=== PATIENT | male | born 1955 | race American Indian/Alaskan Native ===

== ENCOUNTER 2021-07-04 05:50 | Day surgery (SDC) | payer OTHER ==
[2021-06-28 11:11] LABS: Hematocrit 39.2 % (35.5-45.6); Hemoglobin 12.7 gm/dl (11.8-15.2); Mean Corpuscular HGB Conc 33 % (32-34); Mean Corpuscular Volume 90 fl (84-94); Platelet Count 219 K/mm3 (140-440); Red Blood Count 4.35 M/mm3 (3.65-5.03); Red Cell Distribution Width 13.6 % (13.2-15.2)
[2021-06-28 11:31] LABS: BUN/Creatinine Ratio 20; Blood Urea Nitrogen 16 mg/dL (9-20); Calcium 9.4 mg/dL (8.4-10.2); Hemolysis Index 5
[2021-07-04] MEDS ORDERED: LACTATED RINGERS 1,000 ML ONE ×2 (05:59→09:57)
[2021-07-04] MEDS ORDERED: ceFAZolin/STERILE WATER 2 GM/20 ML SYRINGE IV NR (07:00)
[2021-07-04] MEDS ORDERED: ONDANSETRON 4 MG/2 ML INJ ONE (07:08)
[2021-07-04] MEDS ORDERED: ROCURONIUM 50 MG/5 ML INJ IV ONE (07:08)
[2021-07-04] MEDS ORDERED: LIDOCAINE MPF (2%) 20 MG/1 ML VIAL 5 ML ONE (07:08)
[2021-07-04] MEDS ORDERED: BUPIVACAINE/PF (0.5%) 5 MG/1 ML 30 ML VIAL INFILTRATI ONE ×2 (07:08→10:21)
[2021-07-04] MEDS ORDERED: dexAMETHasone 20 MG/5 ML VIAL ONE (07:08)
[2021-07-04] MEDS ORDERED: LIDOCAINE (1%) 10 MG/1 ML VIAL 20 ML MDV ONE (07:08)
[2021-07-04] MEDS ORDERED: KETAMINE/STERILE WATER 50 MG/ML SYRINGE ONE (07:09)
[2021-07-04] MEDS ORDERED: propofoL 200 MG/20 ML VIAL IV ONE (07:09)
[2021-07-04] MEDS ORDERED: fentaNYL 100 MCG/2 ML INJ ONE (07:09)
--- NOTE | 2021-07-04 07:26 | Anesthesia Day of Surgery ---
Anesthesia Day of Surgery - Day of Surgery Patient Examined: Yes Patient H&P Reviewed: Yes Patient is NPO: Yes
--- NOTE | 2021-07-04 07:29 | Anesthesia Consultation ---
Anesthesia Consult and Med Hx Date of service: 07/04/21 - Airway Anesthetic Teeth Evaluation: Crowns, Bridges ROM Head & Neck: Adequate Mental/Hyoid Distance: Adequate Mallampati Class: Class II Intubation Access Assessment: Good - Pre-Operative Health Status ASA Pre-Surgery Classification: ASA2 Proposed Anesthetic Plan: General - Pulmonary Hx Smoking: Yes (QUIT 2000) Hx Respiratory Symptoms: No (+2FS) Hx Sleep Apnea: Yes (DX SLEEP APNEA WITH CPAP USE) - Cardiovascular System Hx Hypertension: No Hx Heart Attack/AMI: No - Central Nervous System Hx Seizures: No Hx Back Pain: Yes Hx Psychiatric Problems: Yes - Gastrointestinal Hx Gastroesophageal Reflux Disease: Yes (Dietary occasional) - Endocrine Hx Liver Disease: No - Hematic Hx Anemia: No Hx Sickle Cell Disease: No - Other Systems Hx Alcohol Use: Yes (OCC.) Hx Substance Use: Yes (MARIJUANA DAILY) Hx Cancer: No
[2021-07-04] MEDS ORDERED: MAGNESIUM OXIDE 400 MG TAB PO SCH (07:30)
[2021-07-04] MEDS ORDERED: ACETAMINOPHEN 500 MG TAB PO SCH (07:30)
[2021-07-04] MEDS ORDERED: HYDROmorphone 1 MG/1 ML INJ IV PRN ×2 (07:30)
[2021-07-04] MEDS ORDERED: LACTATED RINGERS 1,000 ML IV SCH (07:30)
[2021-07-04] MEDS ORDERED: GABAPENTIN 300 MG CAP PO SCH (07:30)
[2021-07-04] MEDS ORDERED: CELECOXIB 200 MG CAP PO NR (08:00)
[2021-07-04] MEDS ORDERED: MIDAZOLAM 2 MG/2 ML INJ IV NR (08:00)
[2021-07-04] MEDS ORDERED: ONDANSETRON 4 MG/2 ML INJ IV PRN (08:00)
[2021-07-04] MEDS ORDERED: ePHEDrine SULFATE 50 MG/1 ML INJ ONE (08:34)
[2021-07-04] MEDS ORDERED: GLYCOPYRROLATE 0.4 MG/2 ML INJ ONE (10:17)
[2021-07-04] MEDS ORDERED: NEOSTIGMINE 10MG/10 ML INJ MDV ONE (10:17)
[2021-07-04] MEDS ORDERED: LIDOCAINE (1%) 10 MG/1 ML VIAL 20 ML MDV INFILTRATI ONE (10:22)
--- NOTE | 2021-07-04 10:57 | Short Stay Summary ---
Short Stay Documentation Date of service: 07/04/21 - History Principal diagnosis: VENTRAL HERNIA H&P: obtained from office - Allergies and Medications Current Medications: Allergies No Known Allergies Allergy (Verified 06/26/21 09:35) Home Medications Medication Instructions Recorded Confirmed Last Taken Type Diclofenac 75 mg PO DAILY 06/23/21 06/26/21 Unknown History Active Medications Acetaminophen (Acetaminophen 500 Mg Tab) 1,000 mg PO PREOP NELLIE Stop: 07/04/21 21:00 Last Admin: 07/04/21 07:42 Dose: 1,000 mg Documented by: Cefazolin Sodium (Cefazolin/Sterile Water 2 Gm/20 Ml Syringe) 2 gm IV PREOP NR Stop: 07/04/21 21:00 Celecoxib (Celecoxib 200 Mg Cap) 400 mg PO PREOP NR Stop: 07/04/21 21:00 Last Admin: 07/04/21 07:42 Dose: 400 mg Documented by: Gabapentin (Gabapentin 300 Mg Cap) 300 mg PO PREOP NELLIE Stop: 07/04/21 21:00 Last Admin: 07/04/21 07:42 Dose: 300 mg Documented by: Hydromorphone HCl (Hydromorphone 1 Mg/1 Ml Inj) 0.25 mg IV Q10MIN PRN PRN Reason: Pain, Moderate (4-6) Stop: 07/04/21 17:30 Hydromorphone HCl (Hydromorphone 1 Mg/1 Ml Inj) 0.5 mg IV Q10MIN PRN PRN Reason: Pain , Severe (7-10) Stop: 07/04/21 17:30 Lactated Ringer's (Lactated Ringers) 1,000 mls @ 125 mls/hr IV DIRECT NELLIE Last Admin: 07/04/21 06:30 Dose: 125 mls/hr Documented by: Magnesium Oxide (Magnesium Oxide 400 Mg Tab) 400 mg PO PREOP NELLIE Stop: 07/04/21 21:00 Last Admin: 07/04/21 07:42 Dose: 400 mg Documented by: Methocarbamol (Methocarbamol 750 Mg Tab) 1,500 mg PO PREOP NELLIE Stop: 07/04/21 21:00 Last Admin: 07/04/21 07:42 Dose: 1,500 mg Documented by: Midazolam HCl (Midazolam 2 Mg/2 Ml Inj) 2 mg IV PREOP NR Stop: 07/04/21 23:59 Last Admin: 12/14/21 07:42 Dose: 2 mg Documented by: Ondansetron HCl (Ondansetron 4 Mg/2 Ml Inj) 4 mg IV ONCE PRN PRN Reason: Nausea And Vomiting Stop: 07/04/21 18:00 - Brief post op/procedure progress note Date of procedure: 07/04/21 Pre-op diagnosis: ventral hernia/umbilical hernia Post-op diagnosis: same Procedure: robotic assisted ventral and umbilical hernia repair with mesh Anesthesia: GETA, local Findings: Supraumbilical ventral hernia and small umbilical hernia containing preperitoneal fat - total measurement 6cm x 3cm. Repaired with 15cm x 12cm bard ventralite composite mesh. Surgeon: SHAN WHITFIELD (Assist: ROS Tom) Estimated blood loss: minimal Pathology: none Condition: stable - Hospital course Hospital course: Pt observed in PACU and discharged to home when criteria met - Disposition Condition at discharge: Good Disposition: 01 HOME / SELF CARE / HOMELESS Short Stay Discharge Plan Activity: other (no heavy lifting) Diet: regular Wound: open to air, per your surgeon's advice Additional Instructions: SEE PRINTED INSTRUCTIONS Follow up with: [facility] [Primary Care Provider] - 7 Days SHAN WHITFIELD DO [Staff Physician] - 14 Days Prescriptions: Gabapentin 300 mg PO BID #6 capsule Ibuprofen [Motrin 800 MG tab] 800 mg PO Q8HR PRN #30 tablet PRN Reason: Pain, Moderate (4-6) HYDROcodone/APAP 5-325 [[place] 5/325] 1 each PO Q6HR PRN #20 tablet PRN Reason: Pain , Severe (7-10)
--- NOTE | 2021-07-04 13:22 | Post Anesthesia Evaluation ---
- Post Anesthesia Evaluation Patient Participated: Yes Airway Patent: Yes Stable Respiratory Function: Yes Nausea/Vomiting: No Temp > 96.8F: Yes Pain Manageable: Yes Adequeate Hydration: Yes Anesthesia Complications: No Block Receding Appropriately: Not Applicable Patient on Ventilator: No
--- NOTE | 2021-07-04 14:20 | Operative Report ---
Operative Report Operative Report: Date of procedure: 07/04/21 Pre-op diagnosis: ventral hernia/umbilical hernia Post-op diagnosis: same Procedure: robotic assisted ventral and umbilical hernia repair with mesh Anesthesia: ADRIÁNA, local Findings: Supraumbilical ventral hernia and small umbilical hernia containing preperitoneal fat - total measurement 6cm x 3cm. Repaired with 15cm x 12cm bard ventralite composite mesh. Surgeon: SHAN WHITFIELD Assist: ROS Tom Estimated blood loss: minimal Pathology: none Condition: stable Hospital course: Pt observed in PACU and discharged to home when criteria met HPI and indication: 65-year-old male who presents to surgery clinic for evaluation of a bulge above and at his umbilicus. This bulges has been present for some time and was becoming more painful. On exam patient was found to have a partially reducible supraumbilical ventral hernia and reducible umbilical hernia. It was recommended that the hernias be repaired. All risk, benefits, alternatives surgery discussed with patient questions answered. It was recommended that the hernias be repaired robotically. Alternatives such as open versus laparoscopic repair were also discussed. The patient was in agreement and consent obtained. Procedure in detail: The patient was identified in the preoperative area and taken back to the operating room and placed on the operating room table in supine position. After anesthesia was induced, both arms were tucked with all bony prominences padded appropriately. The abdomen was then prepped and draped in usual sterile fashion and a timeout was performed. Local anesthetic was infiltrated into all skin incision sites. A charli incision was made in the left upper quadrant at Sánchez's point through which a Veress needle was inserted. The Veress needle position was confirmed using the saline drop test and the abdomen insufflated to 15 mmHg without incident. A 5 mm incision was made in the right upper quadrant through which a 5 mm Optiview trocar was placed under direct visualization. The abdomen was inspected and there was no underlying injury to any of the abdominal structures. The Veress needle was identified and removed. A 12 mm balloon trocar was placed in the right lateral abdomen and an 8 mm robotic trocar in the right lower quadrant under direct visualization. The 5 mm right upper quadrant trocar was replaced with an 8 mm robotic trocar under direct visualization. The patient was tilted to the left and the robot docked. A fenestrated bipolar was placed in arm #2 and a monopolar scissor in arm #1. The surgeon was then transferred to the console. Both hernias were easily identified. They appear to contain preperitoneal fat. I started by creating a preperitoneal flap approximately 5 to 6 cm to the right of the hernia defect. The peritoneum was very thin and therefore the dissection was carried through the posterior fascia into the retrorectus plane. The flap was dissected using a combination of blunt dissection and electrocautery. Using a combination of blunt dissection and cautery the plane superior to and inferior to the hernias was developed. There was preperitoneal fat incarcerated in both hernias which was carefully dissected and reduced. I then carried my dissection to the left aspect of the hernia defect in order to accommodate mesh placement. Once the dissection was complete the pocket was checked for hemostasis. The hernia defect was measured in aggregate and was approximately 6 cm craniocaudal by 3 cm wide. It was decided to fix the hernia with a 15cm x 12cm cm Bard ventralite composite mesh. The mesh was cut to size by the assistant speech language pathologist. The mesh along with suture material placed into the abdomen by the assistant speech language pathologist. The pressure in the abdomen was turned down to 8 mmHg. First the hernia defect was closed using a 0- VLoc running stitch. The mesh was then placed in the retrorectus space and centered. The uncoated side was placed against the abdominal wall. The mesh was sutured into place in all 4 quadrants using interrupted 2-0 Vicryl stitches. The mesh laid flat in the preperitoneal space with adequate overlap of the hernia. The peritoneum was approximated using 3 0 VLoc running stitch. A small defect at the center of the peritoneum was approximated using a 0 V-Loc stitch. The robot was then undocked and the surgeon scrubbed back in. The remainder of the case was performed laparoscopica lly. All sharps and suture material, raytec, and ruler was removed under direct visualization. The 12 mm port was removed and the fascia closed with an interrupted 0-vicryl stitch using the Chas Steen device. The right lower quadrant port fascia was also closed with an interrupted 0 Vicryl stitch using the Chas Steen device. The right upper quadrant port was removed and the abdomen desufflated. The skin incisions were closed with 4-0 Monocryl subcuticular stitches and skin glue. Once the glue was dry a 4 x 4 gauze was balled up and placed at the umbilicus and location of the supraumbilical ventral hernia and secured with a Tegaderm. At the end of the case, all sponge, instrument, sharp counts were correct 2. An abdominal binder was applied to the patient. The patient was awoken from anesthesia, extubated and taken to PACU in stable condition.
[2021-07-04 15:01] VITALS: BP 108/68
== END 2021-07-04 12:25 | disposition home or self-care (01) ==
LOC: OR 05:50
PROVIDERS: ATTEND Surgery
DX: K42.0 Umbilical hernia with obstruction, without gangrene (principal); K43.6 Other and unspecified ventral hernia with obstruction, without gangrene; Z20.822 Contact with and (suspected) exposure to COVID-19; K21.9 Gastro-esophageal reflux disease without esophagitis; G47.33 Obstructive sleep apnea (adult) (pediatric); Z87.891 Personal history of nicotine dependence; Z79.899 Other long term (current) drug therapy; Z98.890 Other specified postprocedural states
CPT/HCPCS: 36415; 49653; 80048; 85027; C1781; J0690; J1100; J1170; J1815; J2250; J2405; J2704; J2710; J3010; J3490; J7120; S2900; U0003